=== PATIENT | male | born 1950 | race Caucasian/White ===

== ENCOUNTER → 2016-08-22 | Outpatient (CLI) | payer OTHER ==
[~2016-08-22] MED LIST: 1-ME1LIQ PO; ASPI81TA82 PO; ATOR10TA PO; CICL8KIT2 EX; DIOV320T PO; DOXY100T PO; EXEN2VIA SC; FURO20 PO; GLUC1000 PO; HYDR-3533 PO; ISOS120T14 PO; KLOR8TAB PO; LANTUS2P SC; LYRI150C PO; NOVOLOGP2 SQ; OXYC15TA56 PO; PLAV75TA PO; PROT40TA PO; SULF-154 PO; VITA20003 PO
--- NOTE | 2016-08-24 12:13 | RSPPFT ---
DATE OF PROCEDURE: 08/22/16 COMMENTS: Spirometry shows FVC of 2.7 at 64% of predicted, FEV1 of 2.3 at 78%, FEV1/FVC ratio is normal. Flow is normal at FEF 25, FEF 50, FEF 75 and FEF 25-75. There is no response after bronchodilator treatment. Lung volumes show residual volume is increased. TLC is normal. Diffusion capacity is decreased. Flow volume loop indicates a normal pattern. The 6-minute walk test shows no de-saturation. IMPRESSION: 1. Normal spirometry. 2. No response after bronchodilator treatment. 3. Lung volumes show mild hyperinflation. 4. Mild decrease in diffusion capacity. 5. 6-minute walk test shows no de-saturation.
== END ==
LOC: HRSP 12:35
PROVIDERS: ATTEND Internal Medicine
DX: R06.02 Shortness of breath (principal)
CPT/HCPCS: 94060; 94620; 94726; 94729